=== PATIENT | female | born 1955 | race Caucasian/White ===

== ENCOUNTER 2021-03-17 13:56 | Inpatient (IN) | payer OTHER ==
[~2021-03-17] VITALS: Ht 177.8 cm; Wt 102.1 kg
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
--- NOTE | ~2021-03-17 | PLAN ---
[facility] [place] [address] REHAB UNIT PLAN OF CARE Name: DUANE CANNON Room #: 515-P ADM IN ..#: [id number] Admission: 03/17/21 Attend Phys: Yonny Meade MD Discharge: Date of : 59 Report #: [id number] THIS REPORT FOR: cc: Rosario Keita MD,Rosario Meade,Yonny Horner MD ~ DOC #: [id number] Yonny Meade MD DATE OF SERVICE: 03/19/2021 OVERALL PLAN OF CARE SUBJECTIVE: The patient is involved in interdisciplinary acute inpatient rehabilitation. The overall plan of care is based on the pre-admit screen and information garnered from therapy assessments. She is proceeding with her cervical collar with transfers, standby assistance; gait standby assistance and started to work on stairs; lower body dressing, supervision. ASSESSMENT: 1. C1-C2 fracture/dislocation odontoid status post halo, 03/06/2021. 2. Left wrist dislocation, status post closed reduction, 03/05/2021, ____. 3. Urinary tract infection. 4. Vasovagal syndrome. 5. Acute left vertebral artery occlusion without intervention per Vascular. 6. Hypertensive urgency. 7. Hyponatremia, resolved. PLAN: 1. Estimated length of stay should be fairly short. Would anticipate around 10 days maximum. 2. Medical prognosis reasonably good. 3. Anticipated interventions includes the interdisciplinary acute inpatient program. 4. Anticipated functional outcomes would be for the patient to be fully independent with mobility, ADLs, even with her odontoid fracture and halo vest as well as her left wrist splint. 5. Discharge destination would be back home with family. 6. Expected therapy by discipline includes PT ____ half hours per day each five days a week throughout the duration of the acute inpatient stay. The patient's prognosis for significant practical improvement within a reasonable period of time appears good. Given the patient's complex medical condition and risk of further medical complications, rehabilitation services could not be safely provided at a lower level of care such as a nursing home facility. [facility] [address] [place] [address] REHAB UNIT PLAN OF CARE Name: DUANE CANNON Room #: 515-P [facility] IN ..#: [id number] Admission: 03/17/21 Attend Phys: Yonny Meade MD Discharge: Date of : 59 Report #: [id number] Yonny Meade MD DGS By: [id number] Yonny Meade MD /nt
--- NOTE | 2021-03-18 00:05 | NUR ---
PT WAS ADMITTED TO THE UNIT FROM [facility].PT ALERT AND ORIENTED.UNIT ADMISSION HX AND ASSESSMENT COMPLEETD.PT HAS A CAST TO HER L WRIST AND A HALO FIXATION DEVICE ON HER HEAD AND NECK TO HELP IMMOBILIZE AND PROTECT HER CERVICAL SPINE.PT EDUCATED TO USE THE CALL LIGHT FOR ASSISTANCE.CPAP AT HS WITH CONT PULSE OX MONITORING IN PLACE.LAST BM 03/17/21.NON WT BEARING TO HER L UPPER EXT.PT ON ABX FOR UTI.CALL LIGHT WITHIN REACH.
[2021-03-18 05:20] VITALS: BP 136/81
[2021-03-18 05:20] LABS: HEMOGLOBIN 11.4 gm/dL (12.0-15.0); MCH 29.6 pg (26.0-34.0); MCHC 33.4 g/dL (28.0-37.0); MCV 88.7 fL (80.0-100.0); RBC 3.84 mil/uL (4.20-5.00); RDW 13.4 % (10.5-14.5)
[2021-03-18 05:40] LABS: CALCIUM 9.3 mg/dL (8.5-10.1); CREATININE 0.7 mg/dL (0.6-1.0); POTASSIUM 4.3 mmol/L (3.5-5.1)
[2021-03-18 08:20] VITALS: BP 127/85
[2021-03-18 08:51] LABS: FOLIC ACID 29.6 ng/mL (8.6-58.9)
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
--- NOTE | 2021-03-18 12:03 | NUR ---
Received awake on bed. Due medications given as prescribed, able to swallow meds w/o difficulty. On room air. Vital signs stable. On MS, not on telemetry; no ocmplains and signs of chest pain, crushing sensation and heaviness. On room air; CPAP at HS. On regular diet- tolerating well; no nausea, no vomiting and no abdominal pain noted. Continent of bowel and bladder, able to use bedside commode. Falls bundle in place. No IV noted. Wound care consult made from admission for pin care- pt seen and examined by wound team this AM. A/W PT/OT evaluation re: restrictions. Pt requesting to have tylenol prescribed as scheduled dose instead of PRN- ENVIRONMENTAL FIELD SERVICES TECHNICIAN Archana informed re: this; orders obtained. To continue monitoring patient.
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
--- NOTE | 2021-03-18 14:41 | NUR ---
cm tried to visit with yinka, unable to visit with her. will cont following as needed for dc needs.
[2021-03-18 19:56] VITALS: BP 144/81
--- NOTE | 2021-03-19 02:18 | NUR ---
assumed care approx 0 evening 03/18. pt alert and oriented x4, pleasant and cooperative. pt with halo brace in place intact. pt took hs meds with water tolerating well. pt fitted with cpap at hs and appears to be sleeping soundly. bed alarm on and call light in reach. will continue to monitor.
[2021-03-19 08:00] VITALS: BP 145/87
--- NOTE | 2021-03-19 19:18 | NUR ---
ASSUMED CARE AT 0700. A&0X4. HALO BRACE IN PLACE. REPORTS MODERATE PAIN AROUND PIN SITES, AND PAIN MANAGED WITH PRN TYLENOL. PIN SITE CARE, WITH 50% NS AND 50% HYDROGEN PEROXIDE, PROVIDE. PIN SIDE LOOK DRY, NO DRAINAGE NOTED. NEW ORDERS TO BE INITIATED ON 03/20 FOR BACITRACIN TO BE APPLIED TO PIN SITES. DENIES PAIN IN LEFT WRIST. LEFT WRIST REMAINS IN SPLINT AND CARMELITA WRAP. NO CONCERNS AT THIS TIME. WILL CONTINUE TO MONITOR.
[2021-03-19 19:51] VITALS: BP 130/79
--- NOTE | 2021-03-20 01:49 | NUR ---
assumed care approx 0 evening 03/19. pt sitting up in recliner at change of shift resting. pt alert and oriented x4, pleasant and cooperative. pt took hs meds with water tolerating well. pt assisted with cpap with halo at hs and pt appears to be sleeping soundly tonight. bed alarm on and call light in reach. will continue to monitor.
[2021-03-20 08:00] VITALS: BP 134/81
--- NOTE | 2021-03-20 12:59 | NUR ---
ASSUMED CARE AT 0700. SLEPT WELL AFTER GIVEN TYLENOL EARLY LAST NIGHT. ALERT AND ORIENTATED X 3. WOUND CARE TO HALO PIN DONE WITH HYDROGEN PEROXIDE:NS (1:1) AND APPLIED BACITRACIN. SITE LOOKS DRY WITH NO SIGNS OF INFLAMMATION. SHE RECEIVED TYLENOL THIS MORNING AND RATES PAIN AT 1/10. OK PER THERAPISTS TO CHANGE HER STATUS TO MOD INDEPENDENCE. PT IS STEADY WITH HER GAIT. PARTICIPATED WITH THERAPY AND PROGRESSING TOWARDS GOAL. APPETITE GOOD, HAD A BM TODAY. DIURESING ADEQ. CONT TO MONITOR.
[2021-03-20 19:58] VITALS: BP 140/98
--- NOTE | 2021-03-21 00:37 | NUR ---
PT ASSESSMENT COMPLETED AND VSS. MEDS GIVEN ORDERED AND WELL TOLERATED. PT REJI IN ROOM AND STEADY. HALO UNIT IN PLACE. TYLENOL GIVEN FOR PAIN AND WORKING WELL. CPAP ON AT HS. SLEEPING AT THIS TIME. WILL CONTINUE TO MONITOR FREQUENTLY.
[2021-03-21 08:00] VITALS: BP 147/88
--- NOTE | 2021-03-21 12:28 | NUR ---
ASSUMED CARE OF PT THIS MORNING. PT HAS HALO ON SUPPORTING NECH FX. APPLIED PEROXIDE AND OINTMENT TO PINS. ASSESSMENTS WERE OTHERWISE UNREMARKBLE. PT HAS BEEN IN RECLINER THROUGHOUT THE MORNING. VSS, CALL LIGHT AND OTHER NEEDS ARE WITHIN REACH.
[2021-03-21 19:40] VITALS: BP 134/90
--- NOTE | 2021-03-22 03:29 | NUR ---
1/2 STRENGTH PEROXIDE TO PINS PRIOR TO COVERED WITH OINTMENT. APPRECIATES TYLENOL FOR PAIN, UP MOD I IN ROOM. ASSISTED WITH THREADING CPAP STRAPS UNDER HALO SUPPORTS. LEFT WRIST WRAP CDI
[2021-03-22 08:00] VITALS: BP 144/84
--- NOTE | 2021-03-22 10:35 | NUR ---
ASSUMED CARE AT 0700 THIS MORNING. PT WAS A/OX4 WITH NO DEFICITS. SKIN W/D/P AND INTACT. PT HAS HALO IN PLACE. PIN CARE HAS BEEN COMPLETED. LUNGS CLEAR ALL SOTO AND ABD SOFT NONTENDER. ASSESSMENTS OTHERWISE UNREMARKABLE. CALL LIGHT AND OTHER NEEDS WITHIN REACH.
[2021-03-22 20:04] VITALS: BP 144/83
--- NOTE | 2021-03-23 04:15 | NUR ---
assumed care approx 1900 evening 03/22. pt alert and oriented x4, pleasant and cooperative. pt with halo in place, denies complaints. pt took hs meds with water tolerating well. pt modified indep in room tolerating well. pt wearing cpap appears to be sleeping well. call light in reach. will continue to monitor.
[2021-03-23 07:42] VITALS: BP 144/90
--- NOTE | 2021-03-23 11:00 | NUR ---
ASSUMED CARE AT 0700. SLEPT WELL. PAIN IS STABLE AND CONTROLLED WITH TYLENOL AND RATES PAIN AT 1/10 AND COMPLETE RELIEF AFTER TYLENOL. ALERT AND ORIENTATED X 3. HALO PINS INTACT AND PIN CARE DONE WITH NS:HYDROGEN PEROXIDE AND BACITRACIN APPLIED. MOD INDEPENDENCE IN THE ROOM, GOOD GAIT. PROGRESSING WITH THERAPY, POSSIBLY DC HOME THIS WEEK.
[2021-03-23 19:55] VITALS: BP 147/91
--- NOTE | 2021-03-24 04:36 | NUR ---
UP IN CHAIR UNTIL 2200, TOOK SBA WALK TWICE AROUND UNIT, ASSISTED WITH CPAP UNIT PLACEMENT UNDER HALO AT 2230 AND AGAIN AT 0300, AFTER TAKING AN HOUR BREAK FROM THE CPAP, SHE PLANS ON KEEPING IT ON UNTIL 0600 WHICH IS WHEN SHE USUALLY GETS UP.
[2021-03-24 07:52] VITALS: BP 142/88
--- NOTE | 2021-03-24 11:25 | NUR ---
ASSUMED CARE AT 0700. SLEPT WELL. ALERT AND ORIENTATED X 3. REPORTED MIN PAIN AT HER HALO SITE, 11/30 AND DID REQUEST FOR TYLENOL. BP SLIGHTLY ELEVATED AND GIVEN HER NORVASC SCHEDULED. NO COMPLAINS OF BARRETO OR DIZZINESS. MOD IND IN THE ROOM. PT IS ALSO EAGER TO BE DISCHARGE SOON ABLE TO. WOUND CARE DONE TO HALO PIN SITES. NO SIGN OF INFLAMMATION NOTED. PARTICIPATING WITH THERAPY AND PROGRESSING TOWARDS GOAL. PT WILL BE TEAMED TODAY FOR POSSIBLY EARLY DC.
--- NOTE | 2021-03-24 12:33 | NUR ---
team meeting, reccommendation: cont to wear halo. wants to go home soon. relax tech provided by working on car transfer on in and out with halo. working on stairs. will need hospital bed with halo and be able to adjust head of bed. insurance will not covered bed, will discuss rent or use of wedge in bed. dc 5/ initial hh nurse, follow up with othro and surgery after dc. no driving.
[2021-03-24 19:25] VITALS: BP 153/96
--- NOTE | 2021-03-25 03:15 | NUR ---
TYLENOL SUFFICIENT TO ELIMINATE C/O PAIN, TAKING EVER 4 HOURS OR LESS. EVENING WALK AROUND UNIT WITH PATIENT FOCUSING ON GOOD POSTURE TO THE "DEGREE" THAT HALO BRACE ALLOWS IT. MODIFIED INDEPENDENT IN ROOM, NEEDS HELP ONLY TO THREAD STRAPS OF CPAP ABOVE AND BELOW HALO BOLTS. UPPER EXTREMITY LIMITED WEIGHT BEARING DISCUSSSED
[2021-03-25 07:30] VITALS: BP 147/82
--- NOTE | 2021-03-25 08:00 | NUR ---
pt called giancarlo, she wants referral sent to [facility]. giancarlo passed on information to raghav. will cont following as needed for dc needs. will pick her up between noon and 2pm today dcp [facility] home health nurse.
--- NOTE | 2021-03-25 08:18 | NUR ---
ASSUMED CARE AT 0700. PATIENT IS ALERT AND ORIENTED X4. PATIENT HAS CARMELITA WRAP TO HER LEFT WRIST. PATIENT HAS HALO INTACT. PIN SITE CARE DONE. PATIENT IS MOD/I IN ROOM. PATIENT IS NONWT BEARING TO LEFT ARM. FALL AND SAFETY PROTOCOLS IN PLACE. C/O PAIN IN HER NECK. MEDICATED WITH PO PAIN MED. CONTINUES TO PROGRESS TOWARDS D/C GOALS. PLAN D/C TO HOME LATER TODAY. WILL CONTINUE TO MONITER.
[2021-03-25] MEDS ORDERED: BACITRACIN ZINC14 GM TOP (08:24)
[2021-03-25] MEDS ORDERED: SYNTHROID50 MCG PO (08:24)
[2021-03-25] MEDS ORDERED: LIPITOR40 MG PO (08:24)
[2021-03-25] MEDS ORDERED: VENLAFAXINE HCL75 M2 PO (08:24)
[2021-03-25] MEDS ORDERED: TYLENOL325 MG PO (08:24)
[2021-03-25] MEDS ORDERED: NORVASC5 MG PO (08:24)
[2021-03-25 09:34] VITALS: BP 147/82
[2021-03-25 11:03] VITALS: BP 147/82
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
== END 2021-03-25 15:55 | disposition home health service (06) | DRG 552 ==
PROVIDERS: Nurse Practitioner Family; ADMIT Physical Medicine & Rehabilitation; ATTEND Physical Medicine & Rehabilitation
PROC: 5A09557 Assistance with Respiratory Ventilation, Greater than 96 Consecutive Hours, Continuous Positive Airway Pressure (ICD-10-PCS; principal; 2021-03-17)
DX: S13.121A Dislocation of C1/C2 cervical vertebrae, initial encounter (principal); N39.0 Urinary tract infection, site not specified; E87.1 Hypo-osmolality and hyponatremia; S12.090A Other displaced fracture of first cervical vertebra, initial encounter for closed fracture; S12.190A Other displaced fracture of second cervical vertebra, initial encounter for closed fracture; R55 Syncope and collapse; I16.0 Hypertensive urgency; I65.02 Occlusion and stenosis of left vertebral artery; S63.095A Other dislocation of left wrist and hand, initial encounter; X58.XXXA Exposure to other specified factors, initial encounter; F43.20 Adjustment disorder, unspecified; F32.9 Major depressive disorder, single episode, unspecified; E03.9 Hypothyroidism, unspecified; E78.5 Hyperlipidemia, unspecified; E66.9 Obesity, unspecified; F41.9 Anxiety disorder, unspecified; G47.30 Sleep apnea, unspecified; I10 Essential (primary) hypertension; Y93.89 Activity, other specified; Y92.89 Other specified places as the place of occurrence of the external cause; Y99.8 Other external cause status; Z68.32 Body mass index [BMI] 32.0-32.9, adult
CPT/HCPCS: 10112